=== PATIENT | female | born 1955 | race Caucasian/White ===

== ENCOUNTER 2022-08-25 07:04 | Emergency (ER) | payer BC ==
[~2022-08-25] VITALS: Ht 167.6 cm; Wt 81.8 kg
[2022-08-25 07:36] LABS: BASOPHILS % (AUTO) 0.7 % (0-1); EOSINOPHILS # (AUTO) 0.1 X10'3 (0-0.9); HEMATOCRIT 44.3 % (35.0-45.0); HEMOGLOBIN 14.3 g/dl (12.0-16.0); LYMPHOCYTES % (AUTO) 14.9 % (21-51); MEAN CORPUSCULAR HGB CONC 32.4 g/dL (33.0-36.5); MEAN CORPUSCULAR VOLUME 89.6 FL (78-98); MEAN PLATELET VOLUME 8.8 FL (7.4-10.4); MONOCYTES # (AUTO) 0.3 X10'3 (0-0.9); MONOCYTES % (AUTO) 4.9 % (2-12); NEUTROPHILS # (AUTO) 5.4 X10'3 (1.8-7.7); NEUTROPHILS % (AUTO) 77.5 % (42-75); PLATELET COUNT 283 X10'3 (140-440); RED BLOOD COUNT 4.94 X10'6 (4.20-5.60)
[2022-08-25 07:48] LABS: ALANINE AMINOTRANSFERASE 21 U/L (12-78); ALBUMIN/GLOBULIN RATIO 1.1 (1.1-1.5); ALKALINE PHOSPHATASE 103 IU/L (46-116); ANION GAP 8 (8-16); ASPARTATE AMINO TRANSFERASE 18 U/L (10-37); BILIRUBIN,TOTAL 0.6 MG/DL (0.1-1.0); BLOOD UREA NITROGEN 20 MG/DL (7-18); BUN/CREATININE RATIO 29.4 (6.6-38.0); CALCIUM 9.2 MG/DL (8.5-10.1); CHLORIDE 104 MMOL/L (99-107); CREATININE 0.68 MG/DL (0.40-0.90); GLUCOSE 112 MG/DL (70-104); POTASSIUM 3.4 MMOL/L (3.5-5.1); SODIUM 139 MMOL/L (135-145); TOTAL CARBON DIOXIDE 27.5 MMOL/L (24-32); TOTAL PROTEIN 7.6 G/DL (6.4-8.2); eGFR 87 ML/MIN
[2022-08-25] MEDS ORDERED: meclizine 12.5mg tablet PO ONE (09:35)
[2022-08-25] MEDS ORDERED: diazepam 5mg tablet PO ONE (10:20)
[2022-08-25] MEDS ORDERED: MECL-159 PO (10:22)
[2022-08-25 11:06] VITALS: BP 153/93
== END 2022-08-25 11:07 | disposition home or self-care (01) ==
LOC: ER 07:04
DX: R42 Dizziness and giddiness (principal); Z79.899 Other long term (current) drug therapy
CPT/HCPCS: 36415; 71045; 80053; 83735; 83880; 84484; 85025; 93005; 99285; J8597

== ENCOUNTER 2024-04-25 10:16 | Outpatient (CLI) | payer MEDICARE ==
[~2024-04-25 10:16] MED LIST: MECL-302 PO
== END 2024-04-25 23:59 | disposition home or self-care (01) ==
LOC: MRI02 10:16
PROVIDERS: ATTEND Nurse Practitioner Occupational Health
DX: M25.551 Pain in right hip (principal); M25.552 Pain in left hip; G57.01 Lesion of sciatic nerve, right lower limb
CPT/HCPCS: 73721